=== PATIENT | male | born 1990 | race Caucasian/White ===

== ENCOUNTER 2022-08-17 21:18 | Emergency (ER) | payer SELFPAY ==
[~2022-08-17] VITALS: Ht 172.7 cm; Wt 119.0 kg
[2022-08-17] MEDS ORDERED: ONDANSETRON HCL 4MG/2ML INJ IV STA ×2 (21:33→22:34)
[2022-08-17] MEDS ORDERED: KETOROLAC 30MG/ML VIAL IV STA ×2 (21:33→22:34)
[2022-08-17] MEDS ORDERED: SODIUM CHLORIDE 0.9% 1,000 ML IV ONE (21:45)
[2022-08-17 22:06] LABS: BASOPHILS % 0.7 % (0.0-2.0); HEMATOCRIT. 45.1 % (42.0-52.0); HEMOGLOBIN. 15.8 g/dL (14.0-18.0); LYMPHOCYTES % 26.9 % (20.0-50.0); MEAN CORPUSCULAR HEMOGLOBIN 28.9 pg (28.0-32.0); MEAN CORPUSCULAR VOLUME 82.5 fL (80.0-94.0); MEAN PLATELET VOLUME 8.1 fl (7.4-10.4); MONOCYTES % 5.7 % (2.0-8.0); NEUTROPHILS % 65.7 % (40.0-76.0); PLATELET 375 x1000/uL (130-400); RED BLOOD CELL COUNT 5.47 mill/uL (4.7-6.1); RED CELL DISTRIBUTION WIDTH 15.1 % (11.6-14.6)
[2022-08-17 22:12] LABS: CHLORIDE 105 mEq/L (98-107)
[2022-08-17 22:15] LABS: PROTHROMBIN TIME 10.9 sec (9.6-11.0)
[2022-08-17 22:23] LABS: ETHANOL BLOOD < 10 mg/dL
[2022-08-18] MEDS ORDERED: KETOROLAC 30MG/ML VIAL IV NR (01:30)
[2022-08-18] MEDS ORDERED: ONDANSETRON HCL 4MG/2ML INJ IV NR (01:30)
[2022-08-18] MEDS ORDERED: IOHEXOL-300 100 ML BOTTLE ONE (01:59)
[2022-08-18 02:09] VITALS: BP 115/68
[2022-08-18] MEDS ORDERED: POTASSIUM CHLORIDE 20MEQ TABLET SR PO ONE (03:45)
== END 2022-08-18 03:00 | disposition home or self-care (01) ==
LOC: ER 21:18
DX: R10.9 Unspecified abdominal pain (principal); F12.10 Cannabis abuse, uncomplicated; E11.9 Type 2 diabetes mellitus without complications; I10 Essential (primary) hypertension; J45.909 Unspecified asthma, uncomplicated
CPT/HCPCS: 36415; 74177; 76705; 80053; 80320; 83690; 84484; 85025; 85610; 93005; 96374; 96375; 99285; J1885; J2405; J7030; Q9967; Z7610; A4315; G0480